=== PATIENT | female | born 1990 | race Caucasian/White ===

== ENCOUNTER 2017-03-11 14:40 | Emergency (ER) | payer OTHER ==
[2017-03-11 15:44] LABS: HEMOGLOBIN 13.5 gm/dl (12.3-15.3); RED BLOOD COUNT 4.37 M/UL (4.00-5.10); WHITE BLOOD COUNT 5.9 K/UL (4.5-11.0)
[2017-03-11 16:02] LABS: BUN/CREATININE RATIO 24 (0-10)
== END 2017-03-11 17:36 | disposition home or self-care (01) ==
LOC: ER1 14:40
PROVIDERS: Physician Assistant Medical
DX: R10.11 Right upper quadrant pain (principal); R19.7 Diarrhea, unspecified; R11.0 Nausea; F17.210 Nicotine dependence, cigarettes, uncomplicated; Z88.0 Allergy status to penicillin; Z88.6 Allergy status to analgesic agent
CPT/HCPCS: 36415; 80053; 81001; 82150; 83690; 84703; 85025; 96374; 99284; J2405; J7050; Q9962

== ENCOUNTER 2017-03-28 22:51 | Emergency (ER) | payer OTHER ==
[2017-03-29 01:49] LABS: HEMOGLOBIN 13.2 gm/dl (12.3-15.3); RED BLOOD COUNT 4.27 M/UL (4.00-5.10)
[2017-03-29 02:06] LABS: BUN/CREATININE RATIO 22 (0-10)
== END 2017-03-29 04:21 | disposition home or self-care (01) ==
LOC: ER1 22:51
PROVIDERS: Physician Assistant
DX: J06.9 Acute upper respiratory infection, unspecified (principal); F17.210 Nicotine dependence, cigarettes, uncomplicated; Z88.0 Allergy status to penicillin
CPT/HCPCS: 36415; 71020; 80053; 85025; 87081; 87880; 93005; 96372; 99284; J1100; J1885